=== PATIENT | male | born 1970 | race Caucasian/White ===

== ENCOUNTER 2016-05-18 17:12 | Emergency (ER) | payer MEDICAID ==
[2016-05-18] MEDS ORDERED: ONDANSETRON HCL IV 4 MG/2 ML VIAL IV ONE (17:31)
[2016-05-18] MEDS ORDERED: 0.9 % SODIUM CHLORIDE 1,000 ML BAG IV ONE (17:31)
--- NOTE | 2016-05-18 17:31 | Emergency Department Record ---
History of Present Illness - General Source: Patient Mode of Arrival: Ambulatory Limitations: No limitations - History of Present Illness Initial Comments: 46 yo male presents with abdominal pain, nausea and vomiting. The symptoms started on Tuesday. The patient developed appendicitis with perforation and abscess 05/04/14. He was treated with drain and antibiotics at that time. In he again developed symptoms and and was [place] [facility] [place] The patient reports conservative treatment at that time with resolution. He currently has RLQ pain, anorexia, and nausea with vomiting the last two days. No urinary symptoms. MD Complaint: Abdominal pain Onset/Timin -: Days(s) Location: R Flank, RUQ, RLQ Radiation: LUQ Severity: Moderate Quality: Aching, Cramping, Sharp Consistency: Constant Improves With: Nothing Worsens With: Nothing Associated Symptoms: Chills, Fever, Nausea, Vomiting, Other <TAYLOR MTZ - Last Filed: 05/18/16 19:04> <Doreen Perez - Last Filed: 05/18/16 21:37> - General Chief Complaint: Abdominal Pain Stated Complaint: ABD PAIN Time Seen by Provider: 05/18/16 17:23 - Related Data Home Medications Medication Instructions Recorded Confirmed Last Taken No Home Med [NO HOME MEDS] 05/04/14 05/18/16 Unknown Allergies Allergy/AdvReac Type Severity Reaction Status Date / Time codeine AdvReac NAUSEA AND Verified 05/11/15 23:53 VOMITING Travel Screening - Travel/Exposure Within Last 30 Days Have you traveled within the last 30 days?: No - Travel/Exposure Within Last Year Have you traveled outside the [place] in the last year?: No - Additonal Travel Details Have you been exposed to anyone with a communicable illness?: No - Travel Symptoms Symptom Screening: None <TAYLOR MTZ - Last Filed: 05/18/16 19:04> Review of Systems Constitutional: Denies: Chills, Fever, Malaise, Weakness Eyes: Denies: Eye discharge ENT: Denies: Congestion, Throat pain Respiratory: Denies: Cough, Dyspnea, Hemoptysis, Stridor, Wheezes Cardiovascular: Denies: Chest pain, Palpitations, Syncope Endocrine: Denies: Fatigue, Polydipsia, Polyuria Gastrointestinal: Reports: Abdominal pain (RLQ), Nausea, Vomiting. Denies: Constipation, Diarrhea, Hematemesis, Hematochezia, Melena Genitourinary: Denies: Dysuria, Frequency, Hematuria, Retention Musculoskeletal: Denies: Arthralgia, Back pain, Neck pain Neurological: Denies: Confusion, Headache Psychiatric: Denies: Anxiety Hematological/Lymphatic: Denies: Blood Clots, Easy bleeding, Easy bruising, Swollen glands <TAYLOR MTZ - Last Filed: 05/18/16 19:04> Past Medical History - SOCIAL HISTORY Smoking Status: Never smoker Alcohol Use: None Drug Use: None - RESPIRATORY Hx Respiratory Disorders: No - CARDIOVASCULAR Hx Cardiac Cath: Yes (2008) Hx Heart Attack: Yes - NEURO Hx Neuro Disorders: No - GI Hx GI Disorders: No - Hx Genitourinary Disorders: No - ENDOCRINE Hx Endocrine Disorders: No Hx Diabetes: No Hx Thyroid Disease: No - MUSCULOSKELETAL Hx Musculoskeletal Disorders: Yes - PSYCH Hx Psych Problems: No - HEMATOLOGY/ONCOLOGY Hx Hematology/Oncology Disorders: No <TAYLOR MTZ - Last Filed: 05/18/16 19:04> Family Medical History Any Significant Family History?: No Hx Diabetes: Father, Mother, Grandparents Hx Heart Disease: Father, Mother, Grandparents <TAYLOR MTZ - Last Filed: 05/18/16 19:04> Physical Exam - General General Appearance: Alert, Oriented x3, Cooperative, No acute distress Limitations: No limitations - Head Head exam: Normal inspection - Eye Eye exam: Normal appearance. negative: Conjunctival injection, Scleral icterus - ENT ENT exam: Normal exam, Mucous membranes moist Ear exam: Normal external inspection Nasal Exam: Normal inspection Mouth exam: Normal external inspection Teeth exam: Normal inspection Throat exam: Normal inspection - Neck Neck exam: Normal inspection, Full ROM. negative: Tenderness - Respiratory Respiratory exam: Normal lung sounds bilaterally. negative: Respiratory distress, Rhonchi, Stridor, Wheezes - Cardiovascular Cardiovascular Exam: Regular rate, Normal rhythm, Normal heart sounds - GI/Abdominal GI/Abdominal exam: Soft, Guarding (RLQ), Rebound (RLQ), Tenderness (RLQ) - Rectal Rectal exam: Deferred - exam: Deferred - Extremities Extremities exam: Normal inspection, Full ROM, Normal capillary refill. negative: Tenderness - Back Back exam: Reports: Normal inspection, Full ROM. Denies: Muscle spasm, Rash noted, Tenderness - Neurological Neurological exam: Alert, Normal gait, Oriented X3 - Psychiatric Psychiatric exam: Normal affect, Normal mood. negative: Agitated, Anxious - Skin Skin exam: Dry, Intact, Normal color, Warm <TAYLOR MTZ - Last Filed: 05/18/16 19:04> Course Vital Signs 05/18/16 17:21 Temperature 98.2 F Pulse Rate [ 94 H Pulse Ox Probe] Respiratory 16 Rate Blood Pressure 147/115 [Left Arm] Pulse Ox 98 - Reevaluation(s) Reevaluation #1: EMR reviewed 04/2014 CT with appendicitis with abscess/perforation 05/2015 CT with appendicitis no abscess DC [place] [facility] [place] 05[place] requested. 05/18/16 17:35 Reevaluation #2: 05/18/16 18:02 The CBC demonstrated a WBC count of 12.4 CMP with K of 3.3 and TBili of 2.4 05/18/16 18:04 Reevaluation #3: The case was signed out to Dr Perez for further evaluation and review of the CT results. Please see her chart for additional information. 05/18/16 19:15 <TAYLOR MTZ - Last Filed: 05/18/16 19:04> Vital Signs 05/18/16 05/18/16 05/18/16 17:21 18:31 18:59 Temperature 98.2 F Pulse Rate [ 94 H 87 84 Pulse Ox Probe] Respiratory 16 16 16 Rate Blood Pressure 147/115 [Left Arm] Blood Pressure 147/98 149/97 [Right Arm] Pulse Ox 98 98 99 05/18/16 21:21 Temperature 98.5 F Pulse Rate [ 94 H Pulse Ox Probe] Respiratory 16 Rate Blood Pressure [Left Arm] Blood Pressure 155/101 [Right Arm] Pulse Ox 98 - Reevaluation(s) Reevaluation #1: 05/18/16 21:34 pt d/w dr ellsworth who [facility] <Doreen Perez - Last Filed: 05/18/16 21:37> Medical Decision Making - Lab Data Result diagrams: 05/18/16 07:45 05/18/16 07:45 <TAYLOR MTZ - Last Filed: 05/18/16 19:04> - Lab Data Result diagrams: 05/18/16 07:45 05/18/16 07:45 Lab Results 05/18/16 05/18/16 05/18/16 Range/Units 07:45 07:45 07:45 WBC 12.4 H (4.2-12.2) K/uL RBC 5.17 (4.40-5.70) M/uL Hgb 15.2 (14.0-18.0) gm/dl Hct 44.1 (42.0-52.0) % MCV 85.3 (81-97) fl MCH 29.4 (27-33) pg MCHC 34.5 (32-36) g/dl RDW 13.0 (11.5-14.5) % Plt Count 387 (130-400) K/uL MPV 10.1 (7.4-10.4) fl Gran % 78.9 (47-80) % Lymphocytes % 12.5 L (16-45) % Monocytes % 8.2 (0-9) % Eosinophils % 0.2 (0-6) % Basophils % 0.2 (0-6) % PT 12.0 (9.5-12.1) SECONDS INR 1.06 APTT 29.20 (24.5-39.1) SECONDS Sodium 138 (136-145) mmol/L Potassium 3.3 L (3.5-5.1) mmol/L Chloride 95 L (98-107) mmol/L Carbon Dioxide 29.1 (22-30) mmol/L Anion Gap 13.9 (7-16) BUN 10 (9-20) mg/dL Creatinine 1.1 (0.66-1.25) mg/dL Estimated GFR > 60 ml/min Random Glucose 112 H (70-110) mg/dL Calcium 9.2 (8.5-10.1) mg/dL Total Bilirubin 2.37 H (0.2-1.3) mg/dL Direct Bilirubin 0.0 (0-0.3) mg/dL AST 18 (17-59) U/L ALT 32 (21-72) U/L Alkaline Phosphatase 111 (38-126) U/L Total Protein 7.9 (6.3-8.2) gm/dL Albumin 4.6 (3.5-5.0) gm/dL Lipase 42 (23-300) U/L Urine Color Urine Appearance Urine pH (5.0-8.0) Ur Specific [place] (1.002-1.030) Urine Protein (NEGATIVE) Urine Glucose (UA) (NEGATIVE) Urine Ketones (NEGATIVE) Urine Blood (NEGATIVE) Urine Nitrite (NEGATIVE) Urine Bilirubin (NEGATIVE) Urine Urobilinogen (0.20 - 1.00) E.U./dL Ur Leukocyte Esterase (NEGATIVE) Urine RBC (NONE SEEN) Urine WBC (0-2/hpf) Ur Epithelial Cells (FEW) Urine Bacteria 05/18/16 Range/Units 18:35 WBC (4.2-12.2) K/uL RBC (4.40-5.70) M/uL Hgb (14.0-18.0) gm/dl Hct (42.0-52.0) % MCV (81-97) fl MCH (27-33) pg MCHC (32-36) g/dl RDW (11.5-14.5) % Plt Count (130-400) K/uL MPV (7.4-10.4) fl Gran % (47-80) % Lymphocytes % (16-45) % Monocytes % (0-9) % Eosinophils % (0-6) % Basophils % (0-6) % PT (9.5-12.1) SECONDS INR APTT (24.5-39.1) SECONDS Sodium (136-145) mmol/L Potassium (3.5-5.1) mmol/L Chloride (98-107) mmol/L Carbon Dioxide (22-30) mmol/L Anion Gap (7-16) BUN (9-20) mg/dL Creatinine (0.66-1.25) mg/dL Estimated GFR ml/min Random Glucose (70-110) mg/dL Calcium (8.5-10.1) mg/dL Total Bilirubin (0.2-1.3) mg/dL Direct Bilirubin (0-0.3) mg/dL AST (17-59) U/L ALT (21-72) U/L Alkaline Phosphatase (38-126) U/L Total Protein (6.3-8.2) gm/dL Albumin (3.5-5.0) gm/dL Lipase (23-300) U/L Urine Color Yellow Urine Appearance Clear Urine pH 6.0 (5.0-8.0) Ur Specific [place] 1.020 (1.002-1.030) Urine Protein Trace H (NEGATIVE) Urine Glucose (UA) Negative (NEGATIVE) Urine Ketones Trace H (NEGATIVE) Urine Blood Trace-i (NEGATIVE) Urine Nitrite Negative (NEGATIVE) Urine Bilirubin Negative (NEGATIVE) Urine Urobilinogen >=8.0 (0.20 - 1.00) E.U./dL Ur Leukocyte Esterase Negative (NEGATIVE) Urine RBC 0 - 2 (NONE SEEN) Urine WBC 0 - 2 (0-2/hpf) Ur Epithelial Cells 0 - 2 (FEW) Urine Bacteria Few <Doreen Perez - Last Filed: 05/18/16 21:37> Disposition <TAYLOR MTZ - Last Filed: 05/18/16 19:04> Disposition: Transfer Transfer To: [facility] Reason For Transfer: acute appendicitis Accepting Physician: sarah Time Discussed w/Accepting Physician: 21:37 <Doreen Perez - Last Filed: 05/18/16 21:37> Clinical Impression: Acute Appendicitis Qualifiers: Acute appendicitis type: unspecified acute appendicitis type Qualified Code(s) : K35.80 - Unspecified acute appendicitis Disposition: Still a Patient at [facility] Forms: Patient Portal Access
[2016-05-18] MEDS ORDERED: MORPHINE SULFATE 5 MG/ML PFS IVP ONE (17:32)
[2016-05-18 17:48] LABS: BASO % 0.2 % (0-6); EOS % 0.2 % (0-6); GRAN % 78.9 % (47-80); HEMATOCRIT 44.1 % (42.0-52.0); HEMOGLOBIN 15.2 gm/dl (14.0-18.0); LYMPH % 12.5 % (16-45); MEAN CELL VOLUME 85.3 fl (81-97); MEAN CORPUSCULAR HEMOGLOBIN 29.4 pg (27-33); MEAN CORPUSCULAR HGB CONC 34.5 g/dl (32-36); MEAN PLATELET VOLUME 10.1 fl (7.4-10.4); MONO % 8.2 % (0-9); PLATELET COUNT 387 K/uL (130-400); RED BLOOD COUNT 5.17 M/uL (4.40-5.70); WHITE BLOOD COUNT W/O DIFF 12.4 K/uL (4.2-12.2)
[2016-05-18 17:56] LABS: ALBUMIN 4.6 gm/dL (3.5-5.0); ALKALINE PHOSPHATASE 111 U/L (38-126); ALT/SGPT 32 U/L (21-72); ANION GAP 13.9 (7-16); AST/SGOT 18 U/L (17-59); BILIRUBIN,TOTAL 2.37 mg/dL (0.2-1.3); BLOOD UREA NITROGEN 10 mg/dL (9-20); CARBON DIOXIDE 29.1 mmol/L (22-30); CREATININE 1.1 mg/dL (0.66-1.25); EST GLOMERULAR FILTRATION RATE > 60 ml/min; GLUCOSE,RANDOM 112 mg/dL (70-110); LIPASE 42 U/L (23-300); TOTAL PROTEIN 7.9 gm/dL (6.3-8.2)
[2016-05-18 17:57] LABS: INR 1.06; PARTIAL THROMBOPLASTIN TIME 29.2 SECONDS (24.5-39.1)
[2016-05-18 18:36] LABS: URINE APPEARANCE CLEAR; URINE BILIRUBIN NEGATIVE (NEGATIVE); URINE BLOOD TRACE-I (NEGATIVE); URINE COLOR YELLOW; URINE GLUCOSE (UA) NEGATIVE (NEGATIVE); URINE KETONE TRACE (NEGATIVE); URINE LEUKOCYTE ESTERASE NEGATIVE (NEGATIVE); URINE NITRITE NEGATIVE (NEGATIVE); URINE PROTEIN TRACE (NEGATIVE); URINE UROBILINOGEN >=8.0 E.U./dL (0.20 - 1.00)
[2016-05-18 18:42] LABS: URINE BACTERIA FEW; URINE EPITHELIAL CELLS 0 - 2 (FEW); URINE RBC 0 - 2 (NONE SEEN); URINE WBC 0 - 2 (0-2/hpf)
[2016-05-18] MEDS ORDERED: ERTAPENEM SODIUM 1 G in 0.9 % SODIUM CHLORIDE 100ML 100 ML IVPB ONE (21:37)
[2016-05-18] MEDS ORDERED: HYDROMORPHONE HCL 1 MG/ML CPJ IVP ONE (21:40)
--- NOTE | 2016-05-24 16:49 | CT SCAN REPORT ---
DATE: 05/18/2016. EXAM: EMERGENCY CT OF THE ABDOMEN AND PELVIS WITH CONTRAST. HISTORY: Right lower quadrant. Prior appendicitis without appendectomy two years ago. TECHNIQUE: Axial CT scan of the abdomen and pelvis was obtained following both oral and intravenous contrast administration utilizing a dose of 100 mL of Omnipaque 300 as the intravenous contrast. COMPARISON: CT of the abdomen and pelvis dated 05/04/2014. FINDINGS: No calcified gallstones are seen. Faint noncalcified gallstones, however, may be present in the dependent portion of the gallbladder. No additional findings to suggest acute cholecystitis currently. No definite hepatic, splenic, adrenal, pancreatic, or renal mass identified. Oral contrast given is passed throughout the bowels to the rectum with no bowel obstruction evident. There is an abnormal appearance of the right lower quadrant. This is manifest by some thickening of the the wall of the low cecum with adjacent inflammatory type changes in the pericolonic adipose tissue. The terminal ileum has a somewhat thick-walled appearance as well. The appendix is difficult to confidently visualize but by history is still present. There is an approximately 11.9 mm structure adjacent to the cecum which could be an enlarged node or a short segment of distended appendix. Findings are likely inflammatory/infectious in nature in the right lower quadrant, but it is difficult to determine if this is actually appendicitis or some other form of inflammation/infection in the region of the tip of the cecum or terminal ileum. No free intraperitoneal fluid or free intraperitoneal air identified. A small periumbilical abdominal wall hernia containing adipose tissue but no bowel. IMPRESSION: 1. ABNORMAL APPEARANCE OF THE RIGHT LOWER QUADRANT IN THE REGION OF THE TIP OF THE CECUM AND TERMINAL ILEUM. FINDINGS ARE CONSISTENT WITH INFLAMMATORY/ INFECTIOUS CHANGE, ALTHOUGH IT IS DIFFICULT TO DETERMINE IF THIS IS ACTUAL APPENDICITIS OR RELATED TO THE CECUM OR TERMINAL ILEUM ITSELF DETAILED ABOVE. 2. POSSIBLE TINY NONCALCIFIED GALLSTONES IN THE GALLBLADDER BUT NO ADDITIONAL FINDINGS TO SUGGEST ACUTE CHOLECYSTITIS AT THIS TIME. JOB NUMBER: [id number] [facility]
== END 2016-05-18 22:46 | disposition still patient (30) ==
LOC: ER 17:12
DX: K35.80 Unspecified acute appendicitis (principal); R11.2 Nausea with vomiting, unspecified; R63.0 Anorexia; I25.2 Old myocardial infarction
CPT/HCPCS: 99285 ×2; 83690; 85025; 85730; 85610; 80076; 80048; 81001; 74177; Q9967; J1335; J2405; J1170; J2270; J7030